=== PATIENT | male | born 1995 | race Caucasian/White ===

== ENCOUNTER 2024-04-21 01:08 | Emergency (ER) | payer BC, SELFPAY ==
[2024-04-21 01:10] VITALS: BP 175/107; PULSE 96; RESP 20; TEMP 36.8; O2SAT 99; BMI 32.5
--- NOTE | 2024-04-21 01:30 | CT_ITS ---
PROCEDURE INFORMATION: Exam: CT Neck With Contrast Exam date and time: 04/21/2024 2:14 AM Age: 28 years old Clinical indication: Painful swallowing and throat pain; Additional info: R side neck pain at level of hyoid, dysphagia TECHNIQUE: Imaging protocol: Computed tomography of the neck with contrast. Radiation optimization: All CT scans at this facility use at least one of these dose optimization techniques: automated exposure control; mA and/or kV adjustment per patient size (includes targeted exams where dose is matched to clinical indication); or iterative reconstruction. Contrast material: ISOVUE; Contrast volume: 75 ml; Contrast route: IV; COMPARISON: No relevant prior studies available. FINDINGS: Paranasal sinuses: There is moderate opacification of the ethmoid air cells. Prominent mucoperiosteal thickening within the maxillary sinuses. The frontal and sphenoid sinuses are clear. Salivary glands: Normal. Glands are normal in size. Pharynx: Unremarkable. No significant tonsillar enlargement. Prevertebral and retropharyngeal spaces: Unremarkable. Larynx: Unremarkable. Epiglottis is normal. Thyroid: Normal. No enlarged or calcified nodules. Trachea: Visualized trachea is unremarkable. Lungs: Unremarkable as visualized. Lymph nodes: Unremarkable. No lymphadenopathy. Vasculature: The main pulmonary artery appears dilated. The bearing grinder film demonstrates prominent pulmonary artery outflow tract and enlarged heart. Bones/joints: Unremarkable. No acute fracture. Soft tissues: Unremarkable. No significant soft tissue swelling. IMPRESSION: 1. There is no acute process within the neck. 2. Maxillary sinuses and ethmoid air cell disease. 3. Dilated pulmonary outflow tract and suspected cardiomegaly. If these findings are not known, nonemergent cardiac workup is recommended.
--- NOTE | 2024-04-21 01:33 | ED_ITS ---
Discharge Plan Disposition Patient Disposition: Home, Self-Care Condition: Good Prescriptions Prescriptions: No Action fluoxetine [Prozac] 20 mg capsule 20 mg PO DAILY Qty: 90 3RF lorazepam 2 mg tablet 2 mg PO DAILY PRN (Reason: agitation) Qty: 10 1RF Rx Instructions: use for panic level anxiety sildenafil 100 mg tablet 100 mg PO DAILY PRN (Reason: sexual activity) Qty: 10 10RF Rx Instructions: administer 30 minutes to 4 hours before activity methylprednisolone [Medrol (Antonio)] 4 mg tablets,dose pack See Rx Instructions PO PER PKG DIR Qty: 21 0RF Rx Instructions: PO PER PKG DIR Referrals Follow up/Referrals: Vic Love MD [Primary Care Provider] - See instructions Activity Restrictions/Add. Instructions Additional Instructions/Restrictions: You were evaluated in the ER and are appropriate for discharge at this time. Try an [id number] antihistamine such as Zyrtec for the next few weeks to see if this improves your symptoms. Drink plenty of water. Make an appointment with your primary care doctor for reevaluation in a few days. He should see you for reevaluation of your high blood pressure as well as to evaluate further for possible cardiomegaly. Return to the ER with new, worsening, or otherwise concerning symptoms. Clinical Impressions Clinical Impression: Neck pain on right side Print Language Print Language: Yoruba Discharge ED Provider: Gomez Silvestre Adult HPI General Chief complaint: PAIN Stated complaint: sore throat R side, R ear pain Time Seen by Provider: 04/21/24 01:21 Mode of Arrival: Ambulatory Source of Information: Patient Limitations: No Limitations Description of Symptoms (Recalled from ER Triage Doc. by RN): pt reports sore throat on the right side that began 1 month ago, improved for one week and then began to worsen again when he was sick. pt denies any fevers. today at work the pt states the pain became unbearable. History of Present Illness HPI narrative: 28-year-old male with a history of hypertension not currently on any medications presents to the ER for complaints of right sided throat/neck pain that has been progressing over the last 6 weeks. Patient states it started off only being in the mornings, however about 3 weeks ago he got sick and the pain became persistent day and night. He states since that time has continued to progressively worsen. Patient now states he feels like he has something stuck in his throat on that side at all times. He states he has discomfort with swallowing solids and liquids but no difficulty with solids or liquids going down. Patient denies any history of thyroid problems. He states he has not had any recent weight changes, palpitations, problems regulating his body temperature, since he recovered from his recent upper respiratory illness he denies any fevers, chills, chest pain, difficulty breathing. Patient has never had tonsillectomy, he denies any pain with turning his neck. He does report mild right ear pain. ROS otherwise negative. Patient reports tonight to Tylenol around 8:30 PM but when he was at work the pain continued to be persistent and unbearable to the point of came to the ER. Related Data Previous Rx's ?Medication ?Instructions ?Recorded fluoxetine 20 mg capsule (Prozac) 20 mg PO DAILY #90 caps 02/06/22 lorazepam 2 mg tablet 2 mg PO DAILY PRN agitation #10 02/06/22 tabs sildenafil 100 mg tablet 100 mg PO DAILY PRN sexual 02/06/22 activity #10 tabs methylprednisolone 4 mg tablets in See Rx Instructions PO PER PKG DIR 06/26/23 a dose pack (Medrol (Antonio)) #21 tabs Allergies Allergy/AdvReac Type Severity Reaction Status Date / Time azithromycin [From Zithromax] AdvReac Verified 02/06/22 14:10 Penicillins AdvReac Verified 02/06/22 14:10 Sulfa (Sulfonamide AdvReac Verified 02/06/22 14:10 Antibiotics) [facility] Disclaimer: The information contained in this section may have been updated after the patient was seen, as this information can be updated by other users. Social History Smoking Status: Never smoker alcohol intake: never current occupational status: employed Travel in the last 8 weeks: None ROS Obtained: Yes All systems reviewed & no additional complaints except as documented Positive ROS per HPI Physical Exam General General appearance: alert and in no apparent distress Head Head exam: atraumatic and normocephalic Eye Eye exam: Present PERRL and EOMI ENT ENT exam: Present mucous membranes moist, TM's normal bilaterally (No erythema, bright light reflex) and other (Posterior oropharynx is mildly erythematous with enlarged tonsils but no exudate, airway patent, no structural deviation) Neck Neck exam: Present normal inspection, full ROM, trachea midline, tenderness (No cervical spine tenderness, patient has tenderness on the right side of his neck near the right border of the hyoid, I do not appreciate mass) and other; Absent lymphadenopathy or thyromegaly Chest Chest inspection: Present symmetric chest wall rise Respiratory Respiratory exam: Present normal lung sounds bilaterally; Absent respiratory distress, wheezes or stridor Cardiovascular Cardiovascular exam: Present regular rate and normal rhythm Abdominal Exam Abdominal exam: Present soft; Absent distention or tenderness Extremities Exam Extremities exam: Present full ROM Neurological Exam Neurological exam: Present alert and oriented X3; Absent motor sensory deficit Psychiatric Psychiatric exam: Present normal affect and normal mood Skin Skin exam: Present warm and dry Medical Decision Making Medical Records MR Comment: Patient has a history of anxiety treated with Prozac in 2021. At that time he was also prescribed lorazepam and sildenafil. He states he is not currently on any medications. Marlon Inquiry Pt receiving controlled substance: No Vital Signs: 04/21/24 01:10 04/21/24 03:46 Temperature 98.2 F 98.2 F Temperature Source Oral Pulse Rate 89 Pulse Rate [Right] 96 H Respiratory Rate 20 20 Blood Pressure 137/87 Blood Pressure [Right Arm] 175/107 H Blood Pressure Mean [Right Arm] 129 02 Sat by Pulse Oximetry 99 Oxygen Delivery Method Room Air Room Air Lab Data Lab Results 04/21/24 01:40: WBC 12.0 H, RBC 5.42, Hgb 15.7, Hct 48.4, MCV 89.3, MCH 29.0, MCHC 32.5, RDW 13.0, Plt Count 305, MPV 8.8, Neut % (Auto) 49.6, Lymph % (Auto) 34.8, [place] % (Auto) 7.0, Eos % (Auto) 7.1, Baso % (Auto) 1.4, Neut # (Auto) 6.0, Lymph # (Auto) 4.2, [place] # (Auto) 0.9, Eos # (Auto) 0.9 H, Baso # (Auto) 0.2, Sodium 140, Potassium 3.8, Chloride 104, Carbon Dioxide 30, Anion Gap 9.8, BUN 23 H, Creatinine 1.10, Estimated Creat Clear 140, Estimated GFR 79, Est GFR ( Amer) 96, Glucose 94, Calcium 9.4, Total Bilirubin 1.0, AST 41, ALT 43, Alkaline Phosphatase 86, Total Protein 8.5 H, Albumin 4.8, Globulin 3.7 H, Albumin/Globulin Ratio 1.3, TSH 0.79, Free T4 0.89 04/21/24 01:40 04/21/24 01:40 Orders (Tests/Meds): ED MEDICATIONS Discontinued Medications Generic Name Dose Route Start Last Admin Trade Name Freq PRN Reason Stop Dose Admin Iopamidol 75 ml 04/21/24 02:18 04/21/24 02:19 Iopamidol-370 (76%);100ml Bottle IV 04/21/24 02:19 75 ml ONCE ONE Administration Ketorolac Tromethamine 15 mg 04/21/24 01:32 04/21/24 01:44 Ketorolac 30mg/Ml Vial IV 04/21/24 01:33 15 mg ONCE ONE Administration Sodium Chloride 10 ml 04/21/24 02:18 04/21/24 02:19 Sodium Chloride 0.9% 10ml Syr (Rad Only) IV 05/21/24 02:17 10 ml NEEDED PRN Administration Maintain IV Site ORDERS Category Date Time Status CT soft tissue neck w con Stat Cat Scan 04/21/24 01:30 Completed CBC w/Auto Diff [Complete Blood Count Auto Diff] Stat Lab 04/21/24 01:40 Completed CMP [Comprehensive Metabolic Panel] Stat Lab 04/21/24 01:40 Completed Free T4 (Free Thyroxine) Stat Lab 04/21/24 01:40 Completed TSH [Thyroid Stimulating Hormone] Stat Lab 04/21/24 01:40 Completed Medical Decision Narrative: In summary, this 28-year-old male with a history of untreated hypertension and anxiety which are comorbidities of current condition and increases overall morbidity as well as the amount of data to be reviewed presents to the emergency department today with right sided throat/neck pain, right ear pain. On initial evaluation patient is hemodynamically stable though hypertensive, afebrile, oropharynx is patent with mild posterior oropharyngeal erythema and enlarged tonsils but no structural deviation, no lymphadenopathy, mild tenderness along the right border of the hyoid without mass or deformity, no findings of trauma. Differential diagnosis includes but is not limited to viral syndrome, seasonal allergies, otitis media was not appreciated on exam it was considered, also considered lymphadenitis, thyromegaly or mass though this was not appreciated on exam, considered possibility of [employer]ICE [employer], RPA, though I do not have findings of these on exam, considered possibility of malignancy. Based on these concerns, I ordered serum labs, CT soft tissue neck. Patient received Toradol for treatment. Labs personally reviewed demonstrate slight leukocytosis but no anemia, normal platelets, CMP with mild prerenal azotemia but patient is tolerating oral intake, nonactionable at this time, thyroid studies normal. CT imaging personally interpreted does not demonstrate acute abnormality in the neck, I do not appreciate mass or foreign body. See radiology read for final interpretation. Radiology read was notable for possible cardiomegaly only partially imaged. Patient was made aware of these findings and encouraged to follow-up outpatient since he is asymptomatic at this time. On reassessment patient continues to be stable and is appropriate for discharge at this time. Patient was given instructions on symptomatic management, follow up instructions, and return precautions for the emergency department. Patient indicated understanding and was discharged in stable condition. Critical Care Critical Care Time Critical Care Time: No
[2024-04-21] MEDS: KETOROLAC 30MG/ML VIAL 15 MG IV (01:44)
[2024-04-21 01:58] LABS: Basophils # 0.2 K/mm3 (0-0.2); Basophils % 1.4 % (0.1-2.0); Eosinophils # 0.9 K/mm3 (0.0-0.4); Eosinophils % 7.1 % (0.1-12.0); Hematocrit 48.4 % (42.0-52.0); Hemoglobin 15.7 g/dL (14.1-18.0); Lymphocytes # 4.2 K/mm3 (0.7-4.5); Lymphocytes % 34.8 % (10-50); Mean Corpuscular HGB Conc 32.5 g/dL (31.8-35.4); Mean Corpuscular Volume 89.3 fl (80-94); Mean Platelet Volume 8.8 fl (7.4-10.4); Monocytes # 0.9 K/mm3 (0.1-1.0); Neutrophils % 49.6 % (37.0-80.0); Platelet Count 305 K/mm3 (142-424); Red Blood Count 5.42 M/mm3 (4.60-6.20)
[2024-04-21 02:00] LABS: Albumin Level 4.8 g/dl (3.5-5.0); Chloride 104 mmol/L (98-107); Potassium 3.8 mmoL/L (3.5-5.1); Sodium 140 mmol/L (136-145)
[2024-04-21 02:03] LABS: Alanine Aminotransferase 43 U/L (12-78); Albumin/Globulin Ratio 1.3 (1.1-1.8); Alkaline Phosphatase 86 U/L (38-126); Anion Gap 9.8 mEq/L (5-15); Aspartate Amino Transferase 41 U/L (17-59); Blood Urea Nitrogen 23 mg/dl (9-20); Calcium 9.4 mg/dl (8.4-10.2); Carbon Dioxide 30 mmol/L (22.0-30.0); Creatinine Clearance Estimated 140 mL/min (50-200); Estimated Glomerular Filt Rate 79 ml/min (>60); GFR (African American) 96 ML/MIN (>60); Globulin 3.7 g/dL (1.3-3.2); Glucose 94 mg/dl (74-100); Total Protein,Serum 8.5 g/dl (6.3-8.2)
[2024-04-21] MEDS: IOPAMIDOL-370 (76%);100ML BOTTLE 75 ML IV (02:19)
[2024-04-21] MEDS: SODIUM CHLORIDE 0.9% 10ML SYR (RAD ONLY) 10 ML IV (02:19)
[2024-04-21 02:20] LABS: Free T4 (Free Thyroxine) 0.89 ng/dl (0.78-2.19)
[2024-04-21 02:35] LABS: Thyroid Stimulating Hormone 0.79 uIU/mL (0.465-4.68)
[2024-04-21 03:46] VITALS: BP 137/87; PULSE 89; RESP 20; TEMP 36.8; O2SAT 96
== END 2024-04-21 03:50 | disposition home or self-care (01) ==
PROVIDERS: Emergency Provider Emergency Medicine; PCP Family Medicine
DX: M54.2 Cervicalgia (principal)
CPT/HCPCS: 70491; 80050; 80053; 84439; 84443; 85025; 96374; 99284; J1885; Q9967

== ENCOUNTER 2024-05-17 12:57 | Outpatient (CLI) | payer BC, SELFPAY ==
--- NOTE | 2024-05-17 | CA_ITS ---
APPROVED REPORT EXAM: Comprehensive 2D, Doppler, and color-flow Echocardiogram Strategic Planning Specialist: JOHN Branch, RVS Ht: 5 ft 9 in Wt: 217lbs BSA: 2.14 BP: 134/88 mmHg Indications: Cardiomegaly on CT 2D Dimensions Left Atrium 1.98 cm LA Volume 70.30 mL Ascending Aorta 3.02 cm LA Volume Index 32.10 mL/m2 (M/F) 16-34 M-Mode Dimensions RVDd 2.09 cm (0.9-2.6) LA Diam 2.72 cm (1.9-4.0) LVDd 5.21 cm (3.5-5.7) LVDs 3.01 cm (3.5-5.7) IVSd 0.94 cm (0.6-1.1) PWd 0.91 cm (0.6-1.1) EF (Teich) 71.60% EPSs 0.30 cm FS 41.10% EDV (Teich) 124.40 mL TAPSE 2.50 (<1.7) ESV (Teich) 35.30 mL LV Diastology E Decel Time 267 (160-240 msec) E/A Ratio 1.11 MED A' 9.40 cm/s LAT A' 8.50 cm/s Aortic Valve SARAI Index 1.39 cm2/m2 AoV Peak Sacha. 99.0 (50-130 cm/s) AO Peak GR. 3.90 mmHg AO Mean GR. 1.90 (<5 mmHg) AO VTI 19.6 (18-25 cm) SARAI (VTI) 3.04 (2.5-4.5 cm2) Mitral Valve MV A Velocity 73.0 (40-130 cm/s) E/A Ratio 1.11 Pulmonary Valve HI End VMAX 163.0 cm/s Tricuspid Valve TR P. Velocity 201.00 cm/s RAP Estimate 10.00 mmHg RVSP 26.20 mmHg Left Ventricle The left ventricle is normal size. The left ventricular systolic function is normal. The left ventricular ejection fraction is within the normal range. There is normal left ventricular wall thickness. There is normal LV segmental wall motion. LVEF is 55%. The left ventricular diastolic function is normal. Right Ventricle Right ventricle is mild to moderately dilated. The right ventricular systolic function is normal. Atria The left atrium size is normal. The right atrium size is normal. There is no Doppler evidence of interatrial shunt. Aortic Valve The aortic valve opens well. There is no aortic valvular stenosis. No aortic regurgitation is present. Mitral Valve The mitral valve is normal in structure. No evidence of mitral valve stenosis. Trace mitral regurgitation. Tricuspid Valve The tricuspid valve leaflets are thin and pliable. Trace tricuspid regurgitation. There is insufficient TR jet to estimate RVSP. Pulmonic Valve The pulmonary valve is normal in structure. Trace pulmonic regurgitation. Great Vessels The aortic root is normal in size. The ascending aorta is borderline dilated, measuring 3.7 cm in diameter. IVC is normal in size and collapses >50% with inspiration. Pericardium There is no pericardial effusion. Other Information Study Quality: Fair Conclusion Normal LV systolic function. Mild to moderate RV dilation with normal RV function. No significant valvular stenosis or regurgitation. Borderline dilated ascending aorta, measuring 3.7 cm in diameter. In the setting of RV dilation, further evaluation with limited TTE plus bubble study to evaluate for interatrial shunt is suggested. Also, cardiac MRI ([facility] protocol) is recommended. In the setting of borderline dilation of ascending aorta, further evaluation with CTA chest is suggested to evaluate for aortic dilation/aneurysms. Electronically signed by : Kristen Maria MD 05/23/2024 00:00:35
== END 2024-05-17 23:59 | disposition home or self-care (01) ==
LOC: RT 13:00
PROVIDERS: PCP Family Medicine; Visit Provider Family Medicine
DX: I51.7 Cardiomegaly (principal)
CPT/HCPCS: 93306

== ENCOUNTER 2024-06-20 10:00 | Outpatient (CLI) | payer BC, SELFPAY ==
[2024-06-20] MEDS: 0.9 % SODIUM CHLORIDE 50 ML VIAL IV (11:34)
[2024-06-20] MEDS: SODIUM CHLORIDE 0.9% 10ML SYR (RAD ONLY) 10 ML IV (11:34)
[2024-06-20] MEDS: GADOTERIDOL INJ 20ML SYRINGE 20 ML IV (11:34)
== END 2024-06-20 23:59 | disposition home or self-care (01) ==
LOC: RAD 10:00
PROVIDERS: PCP Family Medicine; Visit Provider Nurse Practitioner Family
DX: I77.810 Thoracic aortic ectasia (principal); I51.7 Cardiomegaly
CPT/HCPCS: 75561; A9576

== ENCOUNTER 2024-07-04 14:41 | Outpatient (CLI) | payer BC, SELFPAY | END 2024-07-04 23:59 | disposition home or self-care (01) | LOC: RAD 14:41 | PROVIDERS: PCP Family Medicine; Visit Provider Nurse Practitioner Family | DX: R07.9 Chest pain, unspecified (principal) ==

== ENCOUNTER 2024-07-22 09:59 | Outpatient (CLI) | payer BC, SELFPAY ==
--- NOTE | 2024-07-22 10:00 | CT_ITS ---
FINAL REPORT TECHNIQUE: Then section axial CT images of the chest were obtained with contrast. Three-D reformatted images were also obtained.This study was performed with techniques to keep radiation doses as low as reasonably achievable (ALARA). Individualized dose reduction techniques using automated exposure control or adjustment of mA and/or kV according to the patient''s size were employed. CLINICAL HISTORY: dilated aorta FINDINGS: There is no evidence of pulmonary embolism. There is ectasia of the ascending aorta measuring 39 mm. There is no dissection. There is no evidence of mediastinal or hilar mass or adenopathy. There is no evidence of pulmonary mass or suspicious nodule. No localized inflammatory process is seen within the lungs. Limited images of the upper abdomen are unremarkable. IMPRESSION: No evidence of pulmonary embolism. Ectasia of the ascending aorta measuring 39 mm. Reviewed, Interpreted and Dictated by Sesar Garibay III, MD Transcribed by Arianna Mckeon Authenticated and [facility]
[2024-07-22] MEDS: SODIUM CHLORIDE 0.9% 10ML SYR (RAD ONLY) 10 ML IV (10:34)
[2024-07-22] MEDS: 0.9 % SODIUM CHLORIDE 50 ML VIAL IV (10:34)
[2024-07-22] MEDS: IOPAMIDOL-370 (76%);100ML BOTTLE 100 ML IV (10:34)
== END 2024-07-22 23:59 | disposition home or self-care (01) ==
LOC: RAD 10:00
PROVIDERS: PCP Family Medicine; Visit Provider Nurse Practitioner Family
DX: I51.7 Cardiomegaly (principal); I77.810 Thoracic aortic ectasia
CPT/HCPCS: 71275; Q9967